=== PATIENT | male | born 1960 | race Caucasian/White ===

== ENCOUNTER 2018-01-19 17:13 | Inpatient (IN) | payer MEDICAID, OTHER ==
[~2018-01-19] VITALS: Ht 175.3 cm; Wt 83.1 kg
[2018-01-19 19:15] LABS: Basophils # (auto) 0.1 uL; Basophils % (auto) 0.6 % (0.0-2.0); Eosinophils # (auto) 0 uL; Eosinophils % (auto) 0.3 % (0.0-7.0); Hematocrit 48.1 % (41.0-53.0); Hemoglobin 16.4 g/dL (13.5-17.5); Lymphocytes # (auto) 0.9 uL; Lymphocytes % (auto) 7.6 % (10.0-50.0); Mean Corpuscular Hemoglobin 30.6 pg (28.0-32.0); Mean Corpuscular Hgb Conc. 34.1 g/dL (32.0-36.0); Mean Corpuscular Volume 89.5 fL (80.0-100.0); Monocytes # (auto) 0.7 uL; Monocytes % (auto) 6.2 % (0.0-12.0); Neutrophils # (auto) 10.1 uL; Neutrophils % (auto) 85.3 % (37.0-80.0); Nucleated Red Blood Cells % 0.1 %; Platelet Count (auto) 276 10^3/uL (140-450); Red Blood Cells 5.38 10^6/uL (4.5-5.90); Red Cell Distribution Width 13.5 % (11.8-14.3); White Blood Cell 11.9 10^3/uL (4.4-10.8)
[2018-01-19 19:44] LABS: Albumin 4.2 g/dL (3.4-5.0); BUN/Creatinine Ratio 14.1; Bilirubin, Total 0.4 mg/dL (0.2-1.0); Calcium 8.8 mg/dL (8.5-10.1); Magnesium 2.8 mg/dL (1.6-2.6); Total Protein 7.8 g/dL (6.4-8.2)
[2018-01-20] MEDS ORDERED: MORPHINE SULFATE 4 MG/ML SYR/VIAL IV ONE (01:30)
[2018-01-20] MEDS ORDERED: ASPirin 81 mg TAB PO ONE (01:30)
[2018-01-20] MEDS ORDERED: NITROGLYCERIN 2% OINT 1GM PKG TD ONE (01:30)
[2018-01-20] MEDS ORDERED: ONDANSETRON HCL 4 MG/2 ML VIAL IV ONE (01:30)
[2018-01-20] MEDS ORDERED: ENOXAPARIN SOD 100 MG/1 ML SYRINGE SC ONE (03:00)
[2018-01-20] MEDS ORDERED: TEMAZEPAM 15 MG CAP PO PRN (05:30)
[2018-01-20] MEDS ORDERED: ACETAMINOPHEN 325 MG TAB PO PRN (05:30)
[2018-01-20] MEDS ORDERED: MORPHINE SULFATE 4 MG/ML SYR/VIAL IV PRN (05:30)
[2018-01-20] MEDS ORDERED: ONDANSETRON HCL 4 MG/2 ML VIAL IV PRN (05:30)
[2018-01-20] MEDS ORDERED: NITROGLYCERIN 0.4 MG SL TAB SL PRN (05:30)
[2018-01-20] MEDS ORDERED: HYDROcodone-ACET 5/325MG TAB PO PRN (05:30)
[2018-01-20] MEDS ORDERED: ATORVASTATIN 20 MG TAB PO ONE (05:30)
[2018-01-20] MEDS ORDERED: IOHEXOL 350 MG/ML 100ML IJ ONE (05:45)
[2018-01-20 05:51] LABS: Cholesterol 184 mg/dL (< 200); HDL Cholesterol 35 mg/dL (40-59); LDL Cholesterol 125 mg/dL (< 100); Triglycerides 172 mg/dL (< 150)
[2018-01-20] MEDS: SODIUM CHLORIDE 0.9% 1,000 ML IV SCH ×2 (06:00→20:00)
[2018-01-20 09:00] VITALS: BP 138/106
[2018-01-20] MEDS ORDERED: HYDR-531 PO (09:04)
[2018-01-20] MEDS ORDERED: LISI-646 PO (09:04)
[2018-01-20] MEDS: ASPirin 81 mg TAB PO SCH (10:28)
[2018-01-20] MEDS: LISINOPRIL 5 MG TAB PO SCH (10:30)
[2018-01-20] MEDS: FAMOTIDINE 20 MG TAB PO SCH ×2 (10:30→22:03)
[2018-01-20] MEDS: METOPROLOL TARTRATE 25 MG TAB PO SCH ×2 (10:32→22:03)
[2018-01-20] MEDS: ENOXAPARIN SOD 100 MG/1 ML SYRINGE SC SCH ×2 (10:42→22:04)
[2018-01-20 13:00] VITALS: BP 149/88
[2018-01-20 13:40] LABS: Urine Bacteria NONE SEEN /hpf (None Seen); Urine Blood Negative /uL (Negative); Urine WBC 3 /hpf (0 - 3)
[2018-01-20 13:46] LABS: Urine Specific Gravity > 1.050 (1.001-1.035)
[2018-01-20 17:00] VITALS: BP 90/63
[2018-01-20 20:00] VITALS: BP 120/80
[2018-01-20 21:39] VITALS: BP 122/81
[2018-01-20] MEDS ORDERED: ATORVASTATIN 20 MG TAB PO SCH (22:00)
[2018-01-21 04:55] VITALS: BP 126/77
[2018-01-21 06:27] LABS: Basophils # (auto) 0.1 uL; Basophils % (auto) 1.4 % (0.0-2.0); Eosinophils # (auto) 0.3 uL; Eosinophils % (auto) 4.8 % (0.0-7.0); Hematocrit 46.2 % (41.0-53.0); Lymphocytes # (auto) 1.5 uL; Lymphocytes % (auto) 27.5 % (10.0-50.0); Mean Corpuscular Hemoglobin 30.6 pg (28.0-32.0); Mean Corpuscular Hgb Conc. 34.6 g/dL (32.0-36.0); Mean Corpuscular Volume 88.5 fL (80.0-100.0); Monocytes # (auto) 0.8 uL; Monocytes % (auto) 14.5 % (0.0-12.0); Neutrophils # (auto) 2.8 uL; Neutrophils % (auto) 51.8 % (37.0-80.0); Nucleated Red Blood Cells % 0.2 %; Platelet Count (auto) 254 10^3/uL (140-450); Red Blood Cells 5.22 10^6/uL (4.5-5.90); Red Cell Distribution Width 13.3 % (11.8-14.3); White Blood Cell 5.4 10^3/uL (4.4-10.8)
[2018-01-21 06:38] LABS: INR 0.98 (0.9-1.15); Partial Thromboplastin Time 30.9 sec (22.64-33.71); Prothrombin Time 10.7 sec (9.37-12.3)
[2018-01-21 06:45] LABS: Albumin 3.7 g/dL (3.4-5.0); BUN/Creatinine Ratio 19.4; Bilirubin, Total 0.6 mg/dL (0.2-1.0); Calcium 8.6 mg/dL (8.5-10.1); Potassium 3.9 mmol/L (3.5-5.1); Total Protein 7.1 g/dL (6.4-8.2)
[2018-01-21] MEDS: SODIUM CHLORIDE 0.9% 1,000 ML IV SCH (07:49)
[2018-01-21 08:30] VITALS: BP 136/94
[2018-01-21] MEDS ORDERED: ADENOSINE 70 MG in GIVE UN-DILUTED 0 ML IV ONE (08:30)
[2018-01-21 09:00] VITALS: BP 161/78
[2018-01-21] MEDS: ASPirin 81 mg TAB PO SCH (10:00)
[2018-01-21] MEDS: ENOXAPARIN SOD 100 MG/1 ML SYRINGE SC SCH (11:14)
[2018-01-21] MEDS: FAMOTIDINE 20 MG TAB PO SCH (11:15)
[2018-01-21] MEDS: LISINOPRIL 5 MG TAB PO SCH (11:15)
[2018-01-21] MEDS: METOPROLOL TARTRATE 25 MG TAB PO SCH (11:16)
[2018-01-21 12:25] VITALS: BP 129/77
[2018-01-21] MEDS ORDERED: MET25T PO (13:22)
[2018-01-21] MEDS ORDERED: ATOR20TA50 PO (13:22)
[2018-01-21] MEDS ORDERED: ASPI-231 PO (13:22)
[2018-01-21] MEDS ORDERED: LISI-646 PO (13:26)
[2018-01-22] MEDS ORDERED: LISINOPRIL 5 MG TAB PO SCH (10:00)
== END 2018-01-21 17:17 | disposition home or self-care (01) | DRG 303 ==
LOC: EDBD 17:13 → ER 17:13 → TELE 17:14 → TELE-EAST 01-20 09:00
PROVIDERS: ADMIT Nurse Practitioner; ATTEND Internal Medicine
DX: I25.10 Atherosclerotic heart disease of native coronary artery without angina pectoris (principal); E78.5 Hyperlipidemia, unspecified; F17.210 Nicotine dependence, cigarettes, uncomplicated; I10 Essential (primary) hypertension; J44.9 Chronic obstructive pulmonary disease, unspecified; Z96.653 Presence of artificial knee joint, bilateral; R74.8 Abnormal levels of other serum enzymes; G47.00 Insomnia, unspecified; Z71.6 Tobacco abuse counseling
CPT/HCPCS: 36415; 71046; 71275; 80053; 80061; 81001; 83735; 84484; 85025; 85379; 85610; 85730; 93005; 93017; 93306; 96360; 96372; J0153